=== PATIENT | female | born 2000 | race Caucasian/White ===

== ENCOUNTER 2024-08-04 20:21 | Emergency (ER) | payer BC ==
[~2024-08-04] VITALS: Ht 154.9 cm; Wt 77.1 kg
[2024-08-04] MEDS ORDERED: VIBRAMYCIN100 MG PO (20:59)
[2024-08-04] MEDS ORDERED: Doxycycline Hyclate 100 MG CAPSULE PO ONE (21:00)
== END 2024-08-04 21:09 | disposition home or self-care (01) ==
LOC: ED 20:21
DX: S90.562A Insect bite (nonvenomous), left ankle, initial encounter (principal); L03.116 Cellulitis of left lower limb; Z91.018 Allergy to other foods; W57.XXXA Bitten or stung by nonvenomous insect and other nonvenomous arthropods, initial encounter; Y93.89 Activity, other specified; Y92.89 Other specified places as the place of occurrence of the external cause; Y99.8 Other external cause status